=== PATIENT | male | born 1980 | race Caucasian/White ===

== ENCOUNTER 2016-11-15 20:18 | Emergency (ER) ==
[2016-11-15 20:26] VITALS: BP 133/104; TEMP 98.6; BMI 20.1
[2016-11-15] MEDS ORDERED: MOTRIN SUSP PO STA (20:27)
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
--- NOTE | 2016-11-16 00:40 | DI ---
EXAM: Left elbow, three views, 11/15/2016 HISTORY: Fall COMPARISON: None. FINDINGS / IMPRESSION: Normal anatomic alignment is maintained. There is no evidence of fracture o r dislocation. No acute osseous abnormality of the left elbow.
--- NOTE | 2016-11-16 00:41 | DI ---
EXAM: Left shoulder, three views, 11/15/2016 HISTORY: Fall COMPARISON: None. FINDINGS / IMPRESSION: The glenohumeral and acromioclavicular joint align normally. There is evide nce of fracture or dislocation. No acute osseous abnormality of the left shoulder.
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
== END 2016-11-15 21:10 | disposition left against medical advice (07) ==
LOC: ED 20:18
DX: S40.012A Contusion of left shoulder, initial encounter (principal); S50.02XA Contusion of left elbow, initial encounter; S46.002A Unspecified injury of muscle(s) and tendon(s) of the rotator cuff of left shoulder, initial encounter; R00.2 Palpitations; W86.8XXA Exposure to other electric current, initial encounter; F17.210 Nicotine dependence, cigarettes, uncomplicated
CPT/HCPCS: 93005; 93010; 99284